=== PATIENT | male | born 1980 | race Caucasian/White ===

== ENCOUNTER 2022-02-06 09:30 | Emergency (ER) | payer BC ==
[2022-02-06] MEDS ORDERED: diphenhydrAMINE 50 MG/ML SDV IV ONE (11:45)
[2022-02-06] MEDS ORDERED: Iopamidol 612 MG/ML 100 ML Bottle IVPUSH ONE ×2 (12:04)
[2022-02-06] MEDS ORDERED: predniSONE 20 MG Tab PO ONE (13:05)
[2022-02-06] MEDS ORDERED: Acetaminophen 500 MG Tab PO ONE (13:45)
[2022-03-03 09:35] LABS: SODIUM,NA 139 mmol/L (136-145)
[2022-03-03 09:36] LABS: ANION GAP 13.9 mEq/L (7-13); CHLORIDE,CL 103 mmol/L (98-107); ESTIMATED GFR 110 mL/min (>=60)
[2022-03-03 09:37] LABS: PTT,PARTIAL THROMBOPLSTIN TIME 25.6 SEC (22.0-34.0)
== END 2022-02-06 14:08 | disposition home or self-care (01) ==
LOC: DL.ED 09:30
DX: K52.9 Noninfective gastroenteritis and colitis, unspecified (principal)
CPT/HCPCS: 36415; 74177; 80053; 82150; 83605; 83690; 85025; 85610; 85730; 86140; 96374; 99284-25; A9270-GY; J1200; J7512

== ENCOUNTER 2022-03-16 05:50 | Day surgery (SDC) | payer BC ==
[~2022-03-16 05:50] MED LIST: Sodium Chloride 0.9% 10 ML Syringe FLUSH SCH
[2022-03-16] MEDS ORDERED: fentaNYL 100 MCG/2 ML SDV IV ONE ×6 (05:51→07:26)
[2022-03-16] MEDS ORDERED: Midazolam 1 MG/ML 2 ML SDV IV ONE ×6 (05:51→07:16)
[2022-03-16] MEDS ORDERED: Sodium Chloride 0.9% 10 ML Syringe FLUSH PRN (06:00)
[2022-03-16] MEDS ORDERED: Dextrose 5%-0.45% NaCl 1,000 ML IV SCH (06:00)
[2022-03-16] MEDS ORDERED: Midazolam 1 MG/ML 2 ML SDV ONE (06:40)
[2022-03-16] MEDS ORDERED: fentaNYL 100 MCG/2 ML SDV ONE (06:40)
[2022-03-16 08:06] VITALS: PULSE 68
[2022-03-16 09:42] VITALS: BP 123/85
== END 2022-03-16 09:15 | disposition home or self-care (01) ==
LOC: DL.ENDO 05:50
PROVIDERS: ATTEND Internal Medicine Gastroenterology
DX: K64.8 Other hemorrhoids (principal); D12.8 Benign neoplasm of rectum; E66.09 Other obesity due to excess calories; E78.00 Pure hypercholesterolemia, unspecified; I10 Essential (primary) hypertension; Z68.37 Body mass index [BMI] 37.0-37.9, adult; Z20.822 Contact with and (suspected) exposure to COVID-19; Z88.0 Allergy status to penicillin; Z98.890 Other specified postprocedural states; Z91.013 Allergy to seafood
CPT/HCPCS: 45380; 45385; J2250; J3010; J7042